=== PATIENT | female | born 1975 | race Caucasian/White ===

== ENCOUNTER → 2016-05-27 | Outpatient (CLI) | payer OTHER | LOC: CIMAGING 09:39 | DX: Z12.31 Encounter for screening mammogram for malignant neoplasm of breast (principal) | CPT/HCPCS: G0202 ==

== ENCOUNTER → 2016-06-13 | Outpatient (CLI) | payer OTHER | LOC: BRMIMAGING 08:28 | PROVIDERS: ATTEND Obstetrics & Gynecology | DX: R92.0 Mammographic microcalcification found on diagnostic imaging of breast (principal) | CPT/HCPCS: G0206 ==

== ENCOUNTER → 2016-08-29 | Outpatient (CLI) | payer OTHER | LOC: BRMIMAGING 09:16 | PROVIDERS: ATTEND Midwife | DX: N64.59 Other signs and symptoms in breast (principal) | CPT/HCPCS: 76641-PO ==